=== PATIENT | male | born 1960 | race Caucasian/White ===

== ENCOUNTER → 2016-09-22 | Outpatient (CLI) | payer MEDICARE | LOC: SLEEP-COR 21:30 | DX: G47.33 Obstructive sleep apnea (adult) (pediatric) (principal) | CPT/HCPCS: 95811 ==

== ENCOUNTER → 2021-04-05 | Outpatient (CLI) | payer BC ==
[~2021-04-05] MED LIST: ATORVASTATIN CA20 MG PO; COZAAR50 MG PO; DOXAZOSIN MESYLA4 MG PO; ELIQUIS5 MG PO; FERROUS GLUCON324 M1 PO; ISOSORBIDE MONO30 MG PO; LEVEMIR100 UNIT/1 SQ; LEVOTHYROXINE75 MC1 PO; LINZESS290 MCG PO; MULTAQ 400 MG400 MG PO; NITROSTAT 0.40.4 MG SL; NORVASC5 MG PO; NOVOLOG100 UNIT/1 SC; OXYCODONE-ACET1 EACH PO; TOPROL XL50 MG PO
[2021-04-05 10:52] LABS: HEMOGLOBIN 14.2 gm/dl (14.0-17.5); RED BLOOD COUNT 4.86 M/UL (4.20-5.50); WHITE BLOOD COUNT 9.9 K/UL (4.5-11.0)
[2021-04-05 11:10] LABS: BUN/CREATININE RATIO 14 (0-10)
== END ==
LOC: LAB 10:22
PROVIDERS: Internal Medicine Cardiovascular Disease
DX: I25.10 Atherosclerotic heart disease of native coronary artery without angina pectoris (principal); I48.0 Paroxysmal atrial fibrillation; R94.39 Abnormal result of other cardiovascular function study
CPT/HCPCS: 36415; 71046; 80048; 85025

== ENCOUNTER → 2021-04-07 | Outpatient (CLI) | payer MEDICARE | LOC: CATH 07:08 | DX: I25.119 Atherosclerotic heart disease of native coronary artery with unspecified angina pectoris (principal); I48.0 Paroxysmal atrial fibrillation; I12.9 Hypertensive chronic kidney disease with stage 1 through stage 4 chronic kidney disease, or unspecified chronic kidney disease; E11.22 Type 2 diabetes mellitus with diabetic chronic kidney disease; N18.9 Chronic kidney disease, unspecified; E78.5 Hyperlipidemia, unspecified; K21.9 Gastro-esophageal reflux disease without esophagitis; E03.9 Hypothyroidism, unspecified; G47.00 Insomnia, unspecified; G47.33 Obstructive sleep apnea (adult) (pediatric); G25.81 Restless legs syndrome; E61.1 Iron deficiency; F41.9 Anxiety disorder, unspecified; Z79.01 Long term (current) use of anticoagulants; Z79.899 Other long term (current) drug therapy; Z86.16 Personal history of COVID-19; Z98.890 Other specified postprocedural states; Z82.49 Family history of ischemic heart disease and other diseases of the circulatory system | CPT/HCPCS: 82962; 99152; C1769; C1894; J1644; J2250; J3010; J7030; J7042; Q9967 ==